=== PATIENT | female | born 1980 | race Caucasian/White ===

== ENCOUNTER 2016-07-06 17:44 | Emergency (ER) | payer OTHER ==
[~2016-07-06] VITALS: Ht 167.6 cm; Wt 74.8 kg
[2016-07-06 17:50] VITALS: BP 138/95
--- NOTE | 2016-07-06 19:20 | NUR ---
Patient to bed 07.
--- NOTE | 2016-07-06 19:30 | NUR ---
PT IS 35/F BIB SELF TO ED WITH C/O POPPING OUT LEFT KNEE OUT OF PLACE X TODAY. PT STATES IT IS HAPPENED BEFORE IN THE PAST. PT STATES MED HX OF DM. DENIES N/V/D; SKIN IS PINK/WARM/DRY; AAOX4 LUNGS CLEAR BL; HR EVEN AND REGULAR; PT DENIES ANY FEVER, CP, SOB, OR COUGH AT THIS TIME; PATIENT STATES PAIN OF 5/10 AT THIS TIME; VSS; PATIENT POSITIONED FOR COMFORT; HOB ELEVATED; BEDRAILS UP X2; BED DOWN. ER MD MADE AWARE OF PT STATUS.
[2016-07-06 19:51] VITALS: BP 122/98
--- NOTE | 2016-07-06 19:51 | NUR ---
Patient discharged with v/s stable. Written and verbal after care instructions given and explained. Patient alert, oriented and verbalized understanding of instructions. Ambulatory with CRUTCHES. All questions addressed prior to discharge. ID band removed. Patient advised to follow up with PMD. Rx of NORCO given. Patient educated on indication of medication including possible reaction and side effects. Opportunity to ask questions provided and answered.
== END 2016-07-06 19:51 | disposition home or self-care (01) ==
LOC: MED 17:44
DX: S83.005D Unspecified dislocation of left patella, subsequent encounter (principal); M25.462 Effusion, left knee; X58.XXXD Exposure to other specified factors, subsequent encounter
CPT/HCPCS: 29505; 73562; 99284

== ENCOUNTER 2016-07-17 18:05 | Emergency (ER) | payer OTHER ==
[~2016-07-17] VITALS: Ht 172.7 cm; Wt 76.7 kg
[2016-07-17 18:32] VITALS: BP 126/89
--- NOTE | 2016-07-17 19:48 | NUR ---
TO ER BED 3
[2016-07-17] MEDS ORDERED: fentaNYL 0.05 MG/ML VIAL IM ONE (20:00)
--- NOTE | 2016-07-17 20:28 | NUR ---
PT TO XRAY
--- NOTE | 2016-07-17 20:42 | NUR ---
PT RETURNED FROM XRAY
[2016-07-17 21:07] VITALS: BP 149/79
== END 2016-07-17 21:07 | disposition home or self-care (01) ==
LOC: MED 18:05
DX: M53.3 Sacrococcygeal disorders, not elsewhere classified (principal); E11.9 Type 2 diabetes mellitus without complications; Z88.6 Allergy status to analgesic agent
CPT/HCPCS: 72220; 81025; 96372; 99284; J3010

== ENCOUNTER 2016-08-10 11:26 | Emergency (ER) | payer SELFPAY ==
[~2016-08-10] VITALS: Ht 167.6 cm; Wt 74.8 kg
[2016-08-10 11:36] VITALS: BP 132/85
--- NOTE | 2016-08-10 11:40 | NUR ---
Patient ambulated to bed 4.
--- NOTE | 2016-08-10 11:41 | NUR ---
PT LEFT FOR XRAY
--- NOTE | 2016-08-10 12:00 | NUR ---
PT RETURNED FROM XRAY
--- NOTE | 2016-08-10 12:05 | NUR ---
PATIENT PRESENTS TO ED WITH RIGHT SIDED RIB PAIN . 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 DENIES N/V/D; SKIN IS PINK/WARM/DRY; AAOX4 WITH EVEN AND STEADY GAIT; LUNGS CLEAR BL; HR EVEN AND REGULAR; PT DENIES ANY FEVER, CP, SOB, OR COUGH AT THIS TIME; PATIENT STATES PAIN OF 6/10 AT THIS TIME; VSS; PATIENT POSITIONED FOR COMFORT; HOB ELEVATED; BEDRAILS UP X2; BED DOWN. ER MD MADE AWARE OF PT STATUS.
--- NOTE | 2016-08-10 12:14 | NUR ---
PATIENT DISCHARGED FROM FACILITY
[2016-08-10 12:15] VITALS: BP 132/85
--- NOTE | 2016-08-10 12:15 | NUR ---
Patient discharged with v/s stable. Written and verbal after care instructions given and explained. Patient alert, oriented and verbalized understanding of instructions. Ambulatory with steady gait. All questions addressed prior to discharge. ID band removed. Patient advised to follow up with PMD. Rx of [place] given. Patient educated on indication of medication including possible reaction and side effects. Opportunity to ask questions provided and answered.
== END 2016-08-10 12:15 | disposition home or self-care (01) ==
LOC: MED 11:26
DX: S20.20XA Contusion of thorax, unspecified, initial encounter (principal); E11.9 Type 2 diabetes mellitus without complications; Z88.6 Allergy status to analgesic agent; Z90.49 Acquired absence of other specified parts of digestive tract; W20.8XXA Other cause of strike by thrown, projected or falling object, initial encounter; Y93.89 Activity, other specified; Y92.89 Other specified places as the place of occurrence of the external cause; Y99.8 Other external cause status
CPT/HCPCS: 71101; 99284

== ENCOUNTER 2016-08-22 11:41 | Emergency (ER) | payer MEDICAID ==
[~2016-08-22] VITALS: Ht 167.6 cm; Wt 77.7 kg
[2016-08-22 11:51] VITALS: BP 141/79
--- NOTE | 2016-08-22 14:32 | NUR ---
Patient ambulated to bed 7. RN evaluating patient at bedside.
--- NOTE | 2016-08-22 14:33 | NUR ---
36F BIB MOTHER C/O COCCYX PAIN, NON-RADIATING, SHARP, 6/10 X THIS MORNING S/P SLIDING DOWN 3 STEPS OF FRONT TATA; MILD REDNESS NOTED TO SITE AT THIS TIME; NO ACTIVE BLEEDING TO SITE AT THIS TIME; PT AA&OX4, PERRLA, BL LUNG SOUNDS CLEAR, RR EVEN/UNLABORED, SKIN IS WARM/DRY/INTACT AT THIS TIME; PT STATES NO N/V/D AT THIS TIME; PT RESTING IN BED W/ HOB ELEVATED AND IN LOWEST POSITION; POSTIONED FOR COMFORT; ER MD MADE AWARE OF STATUS. WILL CONTINUE TO MONITOR.
--- NOTE | 2016-08-22 14:34 | NUR ---
MEHREEN OLIVEIRA EVALUATING PT AT BEDSIDE.
--- NOTE | 2016-08-22 14:37 | NUR ---
BREN TAYLOR CHAPERONED MEHREEN OLIVEIRA FOR COCCYX EXAM S/P FALL AT THIS TIME.
--- NOTE | 2016-08-22 14:43 | NUR ---
ICE PROVIDED TO PT FOR PAIN RELIEF PER MEHREEN HAHN.
[2016-08-22] MEDS: HYDROcodone/APAP 5/325 MG 1 TAB TAB PO ONE (14:49)
[2016-08-22 15:43] VITALS: BP 132/91
--- NOTE | 2016-08-22 15:43 | NUR ---
Patient discharged with v/s stable. Written and verbal after care instructions given and explained. Patient alert, oriented and verbalized understanding of instructions. Ambulatory with steady gait. All questions addressed prior to discharge. ID band removed. Patient advised to follow up with PMD. Rx of NORCO 5MG-325MG TAB given. Patient educated on indication of medication including possible reaction and side effects. Opportunity to ask questions provided and answered.
== END 2016-08-22 15:43 | disposition home or self-care (01) ==
LOC: MED 11:41
DX: S30.0XXA Contusion of lower back and pelvis, initial encounter (principal); S00.03XA Contusion of scalp, initial encounter; Z90.49 Acquired absence of other specified parts of digestive tract; W18.39XA Other fall on same level, initial encounter; Y93.89 Activity, other specified; Y92.89 Other specified places as the place of occurrence of the external cause; Y99.8 Other external cause status
CPT/HCPCS: 72220; 81025; 99284; 99285

== ENCOUNTER 2016-09-12 11:32 | Emergency (ER) | payer MEDICAID ==
[~2016-09-12] VITALS: Ht 170.2 cm; Wt 78.1 kg
[2016-09-12 12:11] VITALS: BP 141/81
[2016-09-12 12:48] LABS: HEMATOCRIT 27.1 % (36-48); HEMOGLOBIN 7.8 g/dL (12.0-16.0); MEAN CORPUSCULAR HEMOGLOBIN 21 pg (27-31); MEAN CORPUSCULAR HGB CONC 29 g/dL (33-37); MEAN CORPUSCULAR VOLUME 73 fL (80-94); PLATELET COUNT (AUTO) 363 K/uL (140-450); RED BLOOD CELL COUNT(AUTO) 3.74 MIL/uL (4.20-5.40); WHITE BLOOD COUNT (AUTO) 3.8 K/uL (4.8-10.8)
[2016-09-12 13:02] LABS: PARTIAL THROMBOPLASTIN TIME 25.4 secs (22-35.6); PROTHROMBIN TIME 10.5 secs (10.8-13.4)
[2016-09-12 13:11] LABS: BAND % (MANUAL) 1 % (0-8); EOSINOPHILS % (MANUAL) 1 % (0-4); HYPOCHROMASIA 1+; LYMPHOCYTES % (MANUAL) 36 % (20-46); MONOCYTES % (MANUAL) 3 % (5-12); NEUTROPHILS % (MANUAL) 59 (43-65)
[2016-09-12 13:12] LABS: OVALOCYTES 1+
--- NOTE | 2016-09-12 13:45 | NUR ---
PATIENT PRESENTS TO ED WITH c/o vaginal and right sided pelvic pain s/p IUD removal yesterday denies vag bleeding, denies dysuria hx----gastric bypass rx----none; DENIES N/V/D; SKIN IS PINK/WARM/DRY; AAOX4 WITH EVEN AND STEADY GAIT; LUNGS CLEAR BL; HR EVEN AND REGULAR; PT DENIES ANY FEVER, CP, SOB, OR COUGH AT THIS TIME; PATIENT STATES PAIN OF 6/10 AT THIS TIME; VSS; PATIENT POSITIONED FOR COMFORT; HOB ELEVATED; BEDRAILS UP X2; BED DOWN. ER MD MADE AWARE OF PT STATUS.
[2016-09-12] MEDS ORDERED: MORPHINE SULFATE 4 MG/ML SYR IM ONE (14:20)
[2016-09-12 14:50] VITALS: BP 138/88
== END 2016-09-12 14:50 | disposition home or self-care (01) ==
LOC: MED 11:32
DX: R10.2 Pelvic and perineal pain (principal); Z90.49 Acquired absence of other specified parts of digestive tract; Z79.82 Long term (current) use of aspirin; Z88.5 Allergy status to narcotic agent
CPT/HCPCS: 36415; 76830; 76856; 81002; 81025; 84702; 85025; 85610; 85730; 96372; 99285; J2270

== ENCOUNTER 2016-11-04 15:28 | Emergency (ER) | payer SELFPAY ==
--- NOTE | 2016-11-04 16:40 | NUR ---
NO ANSWER IN ER LOBBY
--- NOTE | 2016-11-04 16:52 | NUR ---
NO ANSWER IN ER LOBBY
--- NOTE | 2016-11-04 17:40 | NUR ---
NO ANSWER IN ER LOBBY
== END 2016-11-04 17:40 | disposition left against medical advice (07) ==
LOC: MED 15:28
DX: M79.606 Pain in leg, unspecified (principal); Z53.21 Procedure and treatment not carried out due to patient leaving prior to being seen by health care provider